=== PATIENT | male | born 1995 ===

== ENCOUNTER 2024-05-29 06:35 | Day surgery (SDC) | payer OTHER ==
[2024-05-24 08:41] VITALS: BP 126/79
[2024-05-24 09:06] LABS: PH,URINE 7.5 (5.0-8.0); URINE APPEARANCE Clear; URINE BILIRRUBIN Negative (NEGATIVE); URINE BLOOD Negative; URINE COLOR Yellow; URINE GLUCOSE Negative (NEGATIVE); URINE KETONE Negative (NEGATIVE); URINE LEUKOCYTE Negative; URINE NITRATE Negative; URINE PROTEIN Negative (NEGATIVE); URINE UROBILINOGEN 0.2 E.U./dl
[2024-05-24 09:08] LABS: HEMATOCRIT 41.7 % (39.0-48.0); HEMOGLOBIN 14.6 g/dL (13-16.00); MEAN CELL VOLUME 87.9 fL (80.0-100.00); MEAN CORPUSCULAR HEMOGLOBIN 30.7 pg (27.00-32.0); MEAN CORPUSCULAR HGB CONC 34.9 g/dl (32.0-36.0); PLATELET COUNT 231 K/uL (150-450); RED BLOOD COUNT 4.74 M/uL (4.00-6.00); RED CELL DISTRIBUTION WIDTH 13.3 % (11.5-14.5)
[2024-05-24 09:17] LABS: URINE BACTERIA 3.6 uL (0.0-1933); URINE EPITHELIAL CELLS 0.3 uL (0.0-38.8); URINE RBC 1.3 uL (0.0-20.8); URINE WBC 1.1 uL (0.0-23.2)
[2024-05-24 09:48] LABS: ALBUMIN 3.8 gm/dL (3.4-5.0); BILIRUBIN TOTAL 0.65 mg/dL (0.3-1.2); CALCIUM 9.3 mg/dL (8.5-10.1); CREATININE SERUM 0.75 mg/dL (0.70-1.30); GFR 122.28; GLOBULINA 3.2 G/DL (2.4-3.5); POTASSIUM 4.62 mEq/L (3.5-5.1)
[2024-05-24 09:54] LABS: PARTIAL THROMBOPLASTIN TIME 28.2 SECONDS (22.0-34.0); PROTHROMBIN TIME 10.9 SECONDS (9.0-11.5)
[~2024-05-29] VITALS: Ht 180.3 cm; Wt 128.8 kg
[2024-05-30 14:09] VITALS: BP 114/74
== END 2024-05-30 08:01 | disposition home or self-care (01) ==
LOC: CIR.AMB 06:35
PROVIDERS: ATTEND Otolaryngology
DX: J35.1 Hypertrophy of tonsils (principal); Z53.09 Procedure and treatment not carried out because of other contraindication

== ENCOUNTER 2024-06-19 05:43 | Inpatient (IN) | payer OTHER ==
[2024-06-19] MEDS ORDERED: OXYMETAZOLINE HCL 15 ML NASAL DROPS NASAL ONE (10:45)
[2024-06-19] MEDS ORDERED: DEXAMETHASONE SODIUM PHOSPHATE 4 MG/ML VIAL IV ONE (10:45)
[2024-06-19] MEDS ORDERED: SUGAMMADEX SODIUM 200 MG/2 ML VIAL IV ONE (11:01)
[2024-06-19] MEDS ORDERED: PIPERACILLIN/TAZOBACTAM SODIUM 3.375 GM VIAL IV ONE (12:00)
[2024-06-19] MEDS ORDERED: MORPHINE SULFATE 4 MG/ML VIAL IV ONE (15:30)
[2024-06-19] MEDS ORDERED: SODIUM CHLORIDE 0.45 % 1,000 ML IV SCH (16:45)
[2024-06-19] MEDS ORDERED: ONDANSETRON HCL 2 MG/ML VIAL IV PRN (16:45)
[2024-06-19] MEDS ORDERED: ENALAPRILAT DIHYDRATE 1.25 MG/ML VIAL IV PRN (16:45)
[2024-06-19] MEDS ORDERED: TRAMADOL HCL 50 MG TABLET PO PRN (16:45)
[2024-06-19] MEDS ORDERED: ACETAMINOPHEN 500 MG GEL..CAP PO SCH (17:00)
[2024-06-19] MEDS ORDERED: MORPHINE SULFATE 4 MG/ML VIAL IV SCH (17:00)
[2024-06-19] MEDS ORDERED: ACETAMINOPHEN 500 MG GEL..CAP PO ONE (17:23)
[2024-06-19] MEDS ORDERED: PANTOPRAZOLE SODIUM 40 MG/VIAL VIAL IV PUSH SCH (21:00)
[2024-06-19 22:14] VITALS: BP 125/79; O2SAT 93
[2024-06-20 00:39] VITALS: BP 114/76; O2SAT 95
[2024-06-20 08:00] VITALS: BP 108/74; O2SAT 97
== END 2024-06-20 14:10 | disposition home or self-care (01) | DRG 145 ==
LOC: CIR.AMB 05:43 → O/R 16:45 → SURG 16:48
PROVIDERS: ADMIT Otolaryngology; ATTEND Otolaryngology
PROC: 0CBPXZZ Excision of Tonsils, External Approach (ICD-10-PCS; principal; 2024-06-19 17:00)
DX: J35.1 Hypertrophy of tonsils (principal); G47.33 Obstructive sleep apnea (adult) (pediatric)